=== PATIENT | female | born 1965 | race Caucasian/White ===

== ENCOUNTER 2021-09-23 15:42 | Observation (INO) ==
[2021-09-23] MEDS ORDERED: ASPIRIN CHEW 324 MG PO STA (16:17)
[2021-09-23] MEDS ORDERED: ONDANSETRON INJ 2 MG/ML 2 ML VIAL IV STA (16:20)
[2021-09-23] MEDS ORDERED: MoRPHine SULFATE 2 MG/ML CARP IV STA (16:20)
[2021-09-23 16:24] LABS: Basophils # (auto) 0.01 K/uL (0-0.2); Basophils % (auto) 0.2 %; Eosinophils # (auto) 0.04 K/uL (0-0.5); Eosinophils % (auto) 0.7 %; Hematocrit (blood only) 41.6 % (37-47); Immature Granulocytes # (auto) 0.01 K/uL (0.00-0.02); Immature Granulocytes % (auto) 0.2 %; Lymphocytes # (auto) 1.62 K/uL (1.2-3.4); Lymphocytes % (auto) 29.8 %; Mean Corpuscular Hemoglobin 29.4 pg (25-34); Mean Corpuscular Hgb Conc 33.7 g/dL (32-36); Mean Corpuscular Volume 87.2 fL (80-100); Monocytes % (auto) 7.4 %; Neutrophils # (auto) 3.36 K/uL (1.4-6.5); Neutrophils % (auto) 61.7 %; Platelet Count 190 K/uL (130-400); RDW Coefficient of Variation 12.8 % (11.5-14.5); RDW Standard Deviation 41.1 fL (36.4-46.3); Red Blood Count 4.77 M/uL (4.2-5.4); White Blood Count 5.44 K/uL (4.8-10.8)
[2021-09-23 16:58] LABS: Albumin Globulin Ratio 1.6 (0.9-2); Albumin Level 4.5 gm/dl (3.4-5.0); Bilirubin,Total 0.7 mg/dl (0.2-1.0); Calcium 9.6 mg/dl (8.5-10.1); Creatinine Clr Calc Pharmacy 61.9 ml/min; Est GFR (Non-African American) 77.7 ml/min; Globulin 2.9 gm/dl (2.5-4.0); Total Protein 7.4 gm/dl (6.0-8.3)
--- NOTE | 2021-09-23 17:02 | Ultrasound Report ---
US gallbladder HISTORY: 56 years-old Female epigastric pain acute right upper quadrant abdominal pain COMPARISON: CT abdomen and pelvis 03/25/2014 TECHNIQUE: Multiple real-time sonographic images of the abdominal right upper quadrant were obtained assessing grayscale appearance and color flow FINDINGS: The visualized pancreas is unremarkable. The liver is within normal limits. No hepatic mass identifie d. Distended gallbladder with layering cholelithiasis. The gallbladder wall measures the upper limits of normal at 3 mm. Trace layering gallbladder sludge. No pericholecystic fluid. Sonographic Patton s ign was unable to be assessed secondary to recent pain medication administered to the patient. The co mmon bile duct is mildly dilated at 9 mm. No intrahepatic biliary ductal dilation identified. IMPRESSION: 1. Distended stone and sludge-filled gallbladder with borderline wall thickening. There is no pericho lecystic fluid and the sonographic Patton sign was unable to be assessed. Correlate clinically to exc lude acute cholecystitis. 2. The common bile duct is mildly dilated at 9 mm. This finding could be correlated with serum biliru bin. ACT 112: Negative or not required by law. The above report was generated using voice recognition software. It may contain grammatical, syntax o r spelling errors. Electronically signed by: Robe García M.D. 09/23/2021 5:00 PM
--- NOTE | 2021-09-23 17:02 | XRay Report ---
XR chest 1V portable HISTORY: 56 years-old Female Chest Pain acute atypical chest pain COMPARISON: CT abdomen and pelvis 03/25/2014 TECHNIQUE: Portable AP view of the chest FINDINGS: The cardiomediastinal and hilar silhouettes are within normal limits. No pneumothorax, pleural effusi on, airspace consolidation or overt pulmonary edema. The bones of the chest appear grossly intact. IMPRESSION: No acute process. ACT 112: Negative or not required by law. The above report was generated using voice recognition software. It may contain grammatical, syntax o r spelling errors. Electronically signed by: Robe García M.D. 09/23/2021 5:01 PM
[2021-09-23 17:32] LABS: Potassium 3.8 mmol/L (3.5-5.1)
[2021-09-23] MEDS ORDERED: MoRPHine SULFATE 4 MG/ML 1 ML CARP\\VIAL IV STA (18:04)
[2021-09-23] MEDS ORDERED: MoRPHine SULFATE 2 MG/ML CARP IV PRN ×2 (18:06→21:32)
[2021-09-23] MEDS ORDERED: ONDANSETRON INJ 2 MG/ML 2 ML VIAL IV PRN (21:32)
--- NOTE | 2021-09-23 21:37 | Magnetic Resonance Report ---
MR MRCP HISTORY: 56 years-old Female dilated CBD the right upper quadrant abdominal pain with mild common bi le duct dilation. Normal total bilirubin with slightly elevated alkaline phosphatase. COMPARISON: Right upper quadrant abdominal ultrasound of same day TECHNIQUE: MRCP was obtained according to institutional protocol without the use of IV contrast. FINDINGS: Mildly motion degraded exam. The imaged lower chest appears unremarkable. No bowel obstruction or bow el wall thickening identified. The solid abdominal organs are within normal limits. Distended gallbla dder with borderline wall thickening and trace pericholecystic fluid is noted. Layering cholelithiasi s with gallstones extending into the gallbladder neck. The common bile duct is normal measuring 5 mm. No intrahepatic or extrahepatic biliary ductal dilation. No biliary stricture, lesion or filling def ects identified to suggest choledocholithiasis. Normal caliber of the pancreatic duct. No evidence of pancreatic divisum. IMPRESSION: 1. Cholelithiasis with findings suggestive of acute cholecystitis. 2. No biliary ductal dilation or evidence of choledocholithiasis. ACT 112: Negative or not required by law. The above report was generated using voice recognition software. It may contain grammatical, syntax o r spelling errors. Electronically signed by: Robe García M.D. 09/23/2021 9:34 PM
[2021-09-23] MEDS: LACTATED RINGER'S 1,000 ML IV SCH (21:50)
--- NOTE | 2021-09-23 22:07 | History & Physical Report ---
Date of Service September 23, 2021 Assessment & Plan (1) Cholecystitis: Plan: Patient has been admitted to the hospital due to her clinical presentation and imaging findings. We will proceed as follows: Analgesia will be provided Antiemetics will be provided We will hydrate her with IV fluids We will continue antibiotics. She has received Unasyn thus far We will keep the patient n.p.o. We will tentatively plan on cholecystectomy with Dr. Elvis Atkins on 09/24/2021. I have outlined the risks, benefits, and alternatives with the patient and I also outlined the expected postoperative course. She wishes to proceed. Will use SCDs for DVT prevention. No chemical means due to planned surgery Should be a level 1 full code Admission and Anticipated Discharge Date Admission Date: September 23, 2021 History of Present Illness Chief Complaint: Cholecystitis Primary Care Provider: Ju Dugan MD This is a 56-year-old female who was in her usual state of health when she presented to the emergency department secondary to abdominal pain. She notes the abdominal pain was in the epigastric and right upper quadrants. She notes that she has never had this pain before. She denies any radiation of the pain. She did not have any nausea or vomiting. She denies any fevers, shakes, chills. Patient denies any diarrhea. Patient notes that she has had abdominal surgery in the form of a laparoscopic appendectomy in the past. Because of the nature of the patient's pain she reported to the emergency department Today since admission the patient has had labs and imaging which I independent reviewed. An EKG showed normal sinus rhythm without changes indicative of acute ischemia. Chest x-ray showed no evidence of pneumonia. A gallbladder ultrasound showed a distended gallbladder with stones and sludge in it. There is borderline gallbladder wall thickening. No pericholecystic fluid is noted. There was some dilatation noted of the common bile duct. An MRCP was performed that showed no evidence of choledocholithiasis. Findings consistent with cholecystitis were noted on this study. A CBC showed white blood cell count, hemoglobin, hematocrit, and platelet count were all normal. Chemistry profile showed sodium, potassium, BUN, and creatinine were all normal. There is no elevation of patient's bilirubin or transaminases. There was a slight elevation of patient's alkaline phosphatase at 119. A COVID test was noted to be negative. At the time of my interview she was resting comfortably in bed in no distress Allergies Allergy/AdvReac Type Severity Reaction Status Date / Time No Known Allergies Allergy Unverified 09/23/21 16:00 Home Medications Medication Instructions Recorded Confirmed Type atorvastatin 40 mg tablet 40 mg PO QPM 09/23/21 09/23/21 History estradiol 1 applic VAGINAL 2XWK 09/23/21 09/23/21 History gemfibrozil 600 mg tablet 600 mg PO BID 09/23/21 09/23/21 History Past Med/Surg History Social History Smoking Status: Never smoker Hx Alcohol Use: No Hx Substance Use: No Preferred Language: [place] Communication Ability: Effective 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 Required: No Beliefs That Will Affect Care: None Current Living Situation: Spouse Other Information That Helps Us Care for You: No Feels Safe at Home: Yes Safety Concerns: Feels Safe At This Time Assistive Devices: Assistive Devices Comment: reading glasses Review of Systems Constitutional: no fever and no chills Eyes: no diplopia Ear, Nose, Mouth, Throat: no ear pain Respiratory: no cough and no dyspnea Cardiovascular: no chest pain Gastrointestinal: as per Subjective / HPI and + abdominal pain; no nausea and no vomiting Genitourinary: no dysuria Musculoskeletal: no back pain Integumentary: no rash Neurologic: no localized weakness Physical Exam Constitutional: WD/WN, vitals as above Eyes: no conjunctival abnormality ENMT: Ears: no hearing impairment and no external ear abnormality Mouth: no oropharynx abnormality Neck: trachea midline Respiratory: normal respiratory effort, lungs clear to auscultation Cardiovascular: Rate/Rhythm: regular rate and regular rhythm Gastrointestinal (Abdomen): At the time of my exam the abdomen was soft, nontender and nondistended. There is no pain with palpation. Patton sign was noted to be negative. Musculoskeletal: No calf tenderness Skin: no rashes Neurologic: moves all extremities Psychiatric: A+Ox3, euthymic affect Results & Data Results & Data ([facility]) Vital Signs (Past 12 Hours) Vital Signs Temp Pulse Pulse Resp BP BP BP 09/23/21 21:36 37.1 C 85 18 101/60 09/23/21 19:00 70 18 114/69 09/23/21 17:43 136/79 09/23/21 17:42 67 16 126/71 09/23/21 16:16 62 09/23/21 16:06 66 18 126/71 09/23/21 15:46 36.7 C 75 18 115/70 Pulse Ox 09/23/21 21:36 97 09/23/21 19:00 98 09/23/21 17:43 09/23/21 17:42 97 09/23/21 16:16 95 09/23/21 16:06 99 09/23/21 15:46 100 Code Status & VTE Plan VTE Prophylaxis Plan VTE Prophylaxis will be ordered: Yes Supervising Physician Co-Signing Physician Notes I personally saw and evaluated the patient with Blane Ortega PA-C and agree with the assessment and plan. 56-year-old female with acute cholecystitis and dilated common bile duct Admit to the surgery team Keep n.p.o., give IV fluids and IV antibiotics MRCP to evaluate the common bile duct for choledocholithiasis If this is negative we will proceed with cholecystectomy PG Care Time/CCT Total # of Minutes Spent Total Time Spent with Patient: Total time spent is greater than 50% in coordination of care (as documented) at patient's floor/unit and/or counseling patient: Coding Level of Care Code 97276 Initial Inpt Care Lvl 3 Diagnoses Cholecystitis K81.9
[2021-09-23] MEDS: AMPICILLIN/SULBACTAM SOD 1,500 MG in 0.9 % SODIUM CHLORIDE 100 ML IV SCH (22:17)
[2021-09-23 23:22] LABS: Pregnancy Test, Urine Negative (Negative)
[2021-09-24] MEDS: AMPICILLIN/SULBACTAM SOD 1,500 MG in 0.9 % SODIUM CHLORIDE 100 ML IV SCH ×2 (03:50→11:10)
--- NOTE | 2021-09-24 05:00 | Surgery Progress Note ---
Date of Service September 24, 2021 Assessment & Plan (1) Cholecystitis: Plan: Patient has been admitted to the hospital due to her clinical presentation and imaging findings. We will proceed as follows: Continue analgesics Continue antiemetics Continue hydration with IV fluids Continue antibiotics in the form of Unasyn We will keep the patient n.p.o. Cholecystectomy planned for later this morning Will use SCDs for DVT prevention. No chemical means due to planned surgery Should be a level 1 full code Admission and Anticipated Discharge Date Admission Date: September 23, 2021 Supervising Physician Co-Signing Physician Notes I personally saw and evaluated the patient with Blane Ortega PA-C and agree with the assessment and plan. 56-year-old female with acute cholecystitis and dilated common bile duct MRCP images and results reviewed without evidence of choledocholithiasis We will plan on laparoscopic cholecystectomy possible open today Consent obtained, risks discussed including bleeding, infection, bile leak, ductal injury Subjective Patient is resting comfortably in bed. She denies any nausea or vomiting. She denies any recurrent abdominal pain. Physical Exam Gastrointestinal (Abdomen): Abdomen is soft, nondistended. There is minimal to no tenderness with palpation of the right upper quadrant Results & Data ([facility]) Vital Signs (Past 12 Hours) Vital Signs Temp Pulse Resp BP BP Pulse Ox 09/23/21 21:36 37.1 C 85 18 101/60 97 09/23/21 19:00 70 18 114/69 98 09/23/21 17:43 136/79 09/23/21 17:42 67 16 126/71 97 PG Care Time/CCT Total # of Minutes Spent Total Time Spent with Patient: Total time spent is greater than 50% in coordination of care (as documented) at patient's floor/unit and/or counseling patient: Coding Level of Care Code 34419 Subseq Hosp Care Lvl 1 Diagnoses Cholecystitis K81.9
[2021-09-24 06:45] LABS: Basophils # (auto) 0.01 K/uL (0-0.2); Basophils % (auto) 0.1 %; Eosinophils # (auto) 0.05 K/uL (0-0.5); Eosinophils % (auto) 0.7 %; Hematocrit (blood only) 41.5 % (37-47); Hemoglobin 13.9 g/dL (12.0-16.0); Immature Granulocytes # (auto) 0.02 K/uL (0.00-0.02); Immature Granulocytes % (auto) 0.3 %; Lymphocytes % (auto) 22.6 %; Mean Corpuscular Volume 89.4 fL (80-100); Mean Platelet Volume 9.9 fL (7.4-10.4); Monocytes # (auto) 0.56 K/uL (0.11-0.59); Monocytes % (auto) 7.9 %; Neutrophils # (auto) 4.85 K/uL (1.4-6.5); Neutrophils % (auto) 68.4 %; Platelet Count 202 K/uL (130-400); RDW Standard Deviation 42.5 fL (36.4-46.3); Red Blood Count 4.64 M/uL (4.2-5.4); White Blood Count 7.09 K/uL (4.8-10.8)
[2021-09-24 07:03] LABS: Albumin Globulin Ratio 1.6 (0.9-2); BUN Creatinine Ratio 20.5 (10-20); Bilirubin,Total 0.7 mg/dl (0.2-1.0); Calcium 9.1 mg/dl (8.5-10.1); Creatinine Clr Calc Pharmacy 71.2 ml/min; Est GFR (African American) 106.7 ml/min; Est GFR (Non-African American) 92.1 ml/min; Globulin 2.5 gm/dl (2.5-4.0); Potassium 3.6 mmol/L (3.5-5.1); Total Protein 6.5 gm/dl (6.0-8.3)
[2021-09-24 07:10] LABS: Mean Corpuscular Hgb Conc 33.5 g/dL (32-36)
[2021-09-24] MEDS: LACTATED RINGER'S 1,000 ML IV SCH ×3 (07:49→23:52)
[2021-09-24] MEDS ORDERED: ROCURONIUM BROMIDE 10 MG/ML 5 ML VIAL IV ONE (07:59)
[2021-09-24] MEDS ORDERED: MIDAZOLAM HCL 1 MG/ML 2ML VIAL ONE (07:59)
[2021-09-24] MEDS ORDERED: fentaNYL citrate 100 MCG/2 ML VIAL ONE ×2 (07:59→09:06)
[2021-09-24] MEDS ORDERED: PROPOFOL IV EMULSION 10 MG/ML 20 ML VIAL IV ONE (07:59)
[2021-09-24] MEDS ORDERED: LIDOCAINE 2% 2 ML VIAL/AMP(20MG/ML) INFIL ONE (07:59)
[2021-09-24] MEDS ORDERED: DEXAMETHASONE SOD INJ 4 MG/ML VIAL ONE (07:59)
[2021-09-24] MEDS ORDERED: ONDANSETRON INJ 2 MG/ML 2 ML VIAL ONE (07:59)
[2021-09-24] MEDS ORDERED: BUPIVACAINE/EPINEPHRINE 0.25% 1:200,000 30 ML VIAL ONE (08:03)
[2021-09-24] MEDS ORDERED: fentaNYL citrate 100 MCG/2 ML VIAL IV PRN (08:20)
[2021-09-24] MEDS ORDERED: ATROPINE SULFATE 0.1 MG/ML 10ML SYR IV PRN (08:20)
[2021-09-24] MEDS ORDERED: ONDANSETRON INJ 2 MG/ML 2 ML VIAL IV PRN (08:20)
[2021-09-24] MEDS ORDERED: HYDROmorphone INJ 2 MG/ML SYR/VIAL IV PRN (08:20)
[2021-09-24] MEDS ORDERED: ePHEDrine sulfate 50 MG/ML AMP IV PRN (08:20)
--- NOTE | 2021-09-24 08:20 | Anesthesiology Consultation ---
Date of Service September 24, 2021 Assessment & Plan ASA ASA2 Proposed Anesthesia Anesthesia Type: General Risk / Benefits Reviewed With: PT / POA / Parent / Guardian, Accepts Plan and Informed Consent Obtained History Surgery Operation Date: 09/24/21 11:00 Proposed Procedures p Laparoscopic Cholecystectomy - Elvis Atkins, Height/Weight Height: 5 ft 3 in Weight: 58.1 kg Allergies Allergy/AdvReac Type Severity Reaction Status Date / Time No Known Allergies Allergy Unverified 09/23/21 16:00 Medications Home Medications Medication Instructions Recorded Confirmed Last Taken atorvastatin 40 mg tablet 40 mg PO QPM 09/23/21 09/23/21 Unknown estradiol 1 applic VAGINAL 2XWK 09/23/21 09/23/21 Unknown gemfibrozil 600 mg tablet 600 mg PO BID 09/23/21 09/23/21 Unknown Active Medications Generic Name Dose Route Start Last Admin Trade Name Freq PRN Reason Stop Dose Admin Lactated Ringer's 1,000 mls @ 100 mls/hr 09/23/21 21:32 09/24/21 07:49 Lr IV 10/23/21 21:31 100 mls/hr .Q10H ZAINA Administration Ampicillin Sodium/Sulbactam 104 mls @ 200 mls/hr 09/23/21 22:00 09/24/21 04:22 Sodium 1,500 mg/ Sodium IV 10/03/21 21:59 Infused Chloride Q6H ZAINA Infusion Protocol NPO Date Last Intake of Fluids: 09/23/21 Time Last Intake of Fluids: 14:30 Date Last Intake of Solids: 09/23/22 Time Last Intake of Solids: 14:30 Exercise / Class Metabolic Activity II 4-5 Yardwork/Stairs/Walk up hill Past Anesthesia History No Hx of Anesthesia Complications and No Family Hx of Anesthesia Complications History of PONV No Hx of PONV and No Hx of Motion Sickness Social History Smoking Status: Never smoker Hx Alcohol Use: No Hx Substance Use: No Review of Systems denies fever/cough/ colds/ chest pain/ SOB/ DARRICK denies DARRICK Physical Exam Vital Signs Last Vital Signs Temp 37.2 C 09/24/21 07:20 Pulse 68 09/24/21 07:20 Resp 16 09/24/21 07:20 BP 100/57 L 09/24/21 07:20 Pulse Ox 98 05/01/22 07:20 ENMT Mouth: no TMJ abnormality and no dentition abnormality Thyromental Distance: > or= 3.5 Finger Breadths Mallampati Class: II Neck neck extension not limited Respiratory normal respiratory effort; no respiratory distress Auscultation: lungs clear to auscultation bilaterally Cardiovascular Rate/Rhythm: regular rate and regular rhythm Neurologic moves all extremities Psychiatric Orientation: alert and oriented x 3 Testing Laboratory Results 09/24/21 06:25 09/24/21 06:25 Urine Test Negative (Negative) 09/23/21 22:50 09/23/21 22:50 Urine Test Negative
[2021-09-24] MEDS ORDERED: KETOROLAC 30 MG/ML VIAL ONE (09:12)
[2021-09-24] MEDS ORDERED: HYDROmorphone INJ 1 MG/ML SYRINGE ONE (09:30)
--- NOTE | 2021-09-24 09:51 | Post Operative Brief Note ---
PG Immediate Post Op with CF Date of Surgery September 24, 2021 Pre & Post Diagnosis Operation Date: 09/24/21 11:00 Pre-Op Diagnosis: Acute CHOLECYSTITIS Post-Op Diagnosis: Acute CHOLECYSTITIS I identified the patient and participated in the time-out.: Yes Procedure Operation Date: 09/24/21 11:00 Actual Procedures p Laparoscopic Cholecystectomy(Not Applicable) - Elvis Atkins DO Surgeon Elvis Atkins DO Plant Cytologist None Estimated Blood Loss 5 Findings See Below Acutely inflamed edematous gallbladder Specimens Specimen Description: A. Gallbladder Anesthesia Type General Complications none Disposition Disposition: Recovery Room
--- NOTE | 2021-09-24 09:53 | Operative Report ---
PG Post Operative Report Pre & Post Diagnosis Operation Date: 09/24/21 11:00 Pre-Op Diagnosis: Acute CHOLECYSTITIS Post-Op Diagnosis: Acute CHOLECYSTITIS I identified the patient and participated in the time-out.: Yes Procedure Operation Date: 09/24/21 11:00 Actual Procedures p Laparoscopic Cholecystectomy(Not Applicable) - Elvis Atkins DO Surgeon Elvis Atkins DO Mine Promotor None Estimated Blood Loss 5 Findings See Below Acutely inflamed edematous gallbladder Fluids see anesthesia record Specimens Gallbladder to pathology Drains None Anesthesia Type General Complications none Disposition Disposition: Recovery Room Indications 56-year-old female with acute cholecystitis Description of Procedure The patient was brought to the operating room and placed in the supine position with both arms extended. At this time she underwent general endotracheal anesthesia without any problems. She was given appropriate pre-operative antibiotics. Her abdomen prepped and draped in the usual sterile fashion. A timeout was called, the procedure was verified as Laparoscopic cholecystectomy, possible open, possible intra-operative cholangiogram. Surgical, nursing and anesthesia teams agreed and the procedure was begun. After injection of 0.25% Marcaine with epinephrine, a supraumbilical vertical incision was made and carried down to the fascia using S-retractors. The abdominal wall was then elevated with towel clamps and abdomen entered using the Veress needle confirming position using the saline drop test. Pneumoperitoneum was established and 5mm trocar was placed. Laparoscope was introduced. No injury from entry into the abdomen was visualized after inspection of the abdomen. Three further ports were placed under direct visualization. One 11mm in the subxiphoid region and two 5mm in the RUQ. At this time the abdomen was inspected and the gallbladder identified. The gallbladder was mildly inflamed and edematous consistent with acute cholecystitis. The gallbladder fundus was grasped and retracted cephalad. The gallbladder infundibulum was then grasped and retracted laterally. The cystic duct and cystic artery were then identified and skeletonized. The critical view of safety was obtained. They were both then clipped twice proximally and once distally and then divided using scissors. The gallbladder was then taken off of the liver bed using electrocautery and placed in an endocatch bag and removed from the subxiphoid port. The liver bed was then inspected and no bile leak or bleeding was evident. The subxiphoid port was then closed using 0-Vicryl using the suture passer. The trocars were then removed under direct visualization and no bleeding was present. Abdomen was desufflated. The skin was then closed using 4-0 Monocryl in a subcuticular fashion. Surgical glue was applied. Needle and sponge counts were correct x 2. At this time the patient was awoken from anesthesia and extubated having remained stable throughout the entire case. The patient was then transported to PACU in stable condition. I attest to the content of the Intraoperative Record and any orders documented therein. Any exceptions are noted below.
[2021-09-24] MEDS ORDERED: ACETAMINOPHEN 325 MG TAB PO PRN (10:42)
[2021-09-24] MEDS ORDERED: oxyCODONE HCL IR 5 MG TAB (IMMEDIATE RELEASE) PO PRN (10:42)
--- NOTE | 2021-09-24 10:58 | Anesthesiology Progress Note ---
Date of Service September 24, 2021 Anesthesia Post Procedure Vital Signs Vital Signs: Temp Pulse Pulse Pulse Resp BP BP 09/24/21 10:50 36.5 C 61 12 09/24/21 10:40 65 12 09/24/21 10:30 36.3 C L 62 16 09/24/21 10:20 67 14 09/24/21 10:10 62 16 09/24/21 10:04 36.0 C L 67 16 09/24/21 07:20 37.2 C 68 16 09/23/21 21:36 37.1 C 85 18 101/60 09/23/21 19:00 70 18 09/23/21 17:43 09/23/21 17:42 67 16 09/23/21 16:16 62 09/23/21 16:06 66 18 09/23/21 15:46 36.7 C 75 18 115/70 BP BP Pulse Ox 09/24/21 10:50 120/73 97 09/24/21 10:40 132/67 97 09/24/21 10:30 129/67 100 09/24/21 10:20 127/68 100 09/24/21 10:10 130/68 100 09/24/21 10:04 160/89 H 100 09/24/21 07:20 100/57 L 98 09/23/21 21:36 97 09/23/21 19:00 114/69 98 09/23/21 17:43 136/79 09/23/21 17:42 126/71 97 09/23/21 16:16 95 09/23/21 16:06 126/71 99 09/23/21 15:46 100 Pain Intensity Medial Chest: Pain Intensity: 5 Abdomen: Pain Intensity: 3 Transfer of Care Handoff Completed per policy Notes Mental Status: alert / awake / arousable and participated in evaluation Patient Amnestic to Procedure: Yes Nausea / Vomiting: adequately controlled Pain: adequately controlled Airway Patency, RR, SpO2: stable & adequate BP & HR: stable & adequate Hydration State: stable & adequate Anesthetic Complications: no major complications apparent and Pt Satisfied with anesthetic care
--- NOTE | 2021-09-24 12:28 | Anesthesiology Progress Note ---
Date of Service September 24, 2021 Anesthesia Post Procedure Vital Signs Vital Signs: Temp Pulse Pulse Pulse Resp BP BP 09/24/21 11:50 36.5 C 66 18 09/24/21 11:06 36.5 C 57 L 14 09/24/21 10:50 36.5 C 61 12 09/24/21 10:40 65 12 09/24/21 10:30 36.3 C L 62 16 09/24/21 10:20 67 14 09/24/21 10:10 62 16 09/24/21 10:04 36.0 C L 67 16 09/24/21 07:20 37.2 C 68 16 09/23/21 21:36 37.1 C 85 18 101/60 09/23/21 19:00 70 18 09/23/21 17:43 09/23/21 17:42 67 16 09/23/21 16:16 62 09/23/21 16:06 66 18 09/23/21 15:46 36.7 C 75 18 115/70 BP BP Pulse Ox 09/24/21 11:50 127/75 97 09/24/21 11:06 121/73 98 09/24/21 10:50 120/73 97 09/24/21 10:40 132/67 97 09/24/21 10:30 129/67 100 09/24/21 10:20 127/68 100 09/24/21 10:10 130/68 100 09/24/21 10:04 160/89 H 100 09/24/21 07:20 100/57 L 98 09/23/21 21:36 97 09/23/21 19:00 114/69 98 09/23/21 17:43 136/79 09/23/21 17:42 126/71 97 09/23/21 16:16 95 09/23/21 16:06 126/71 99 09/23/21 15:46 100 Pain Intensity Medial Chest: Pain Intensity: 5 Abdomen: Pain Intensity: 3 Transfer of Care Handoff Completed per policy Notes Mental Status: alert / awake / arousable and participated in evaluation Patient Amnestic to Procedure: Yes Nausea / Vomiting: adequately controlled Pain: adequately controlled Airway Patency, RR, SpO2: stable & adequate BP & HR: stable & adequate Hydration State: stable & adequate Anesthetic Complications: no major complications apparent and Pt Satisfied with anesthetic care
[2021-09-24] MEDS ORDERED: PROCHLORPERAZINE 5 MG in SYRINGE 4 ML IV ONE (13:25)
--- NOTE | 2021-09-24 17:21 | Emergency Department Note ---
Impression & Plan Acute cholecystitis ED Provider Note CHIEF COMPLAINT: Epigastric abdominal pain HISTORY OF PRESENT ILLNESS: This 56-year-old female patient presents to the emergency department with complaints of epigastric abdominal pain. Tonight the patient was eating some sesame crackers as a snack when she developed some severe pain. It does tend to to wax and wane in severity. She denies any fever but admits to a stabbing type pain intermittently. She does have significant nausea but has not vomited. Patient denies any fever. She denies any previous surgery on the gallbladder. Patient denies any history of ulcers. Has been an ongoing issue. REVIEW OF SYSTEMS: A review of systems was performed with positives and pertinent negatives listed in the history of present illness. 10 systems were reviewed and are otherwise negative. ALLERGIES: see below MEDICATIONS: see below PMH: see below SOCIAL HISTORY: see below DDx: Biliary pathology, peptic ulcer disease, aortic dissection, AAA, mesenteric ischemia, kidney stone, UTI, ACS, PNA, amongst others PHYSICAL EXAM: Vital signs reviewed. General: Well-appearing 56-year-old female, in some discomfort HEENT: No scleral icterus, PERRLA, neck supple. Atraumatic. Cardiovascular: Regular rate and rhythm, no extra sounds. Pulmonary: Clear to auscultation bilaterally, normal work of breathing. Abdomen: Soft, tender to palpation in the epigastric region, right greater than left, nondistended, positive bowel sounds. Musculoskeletal: Atraumatic, no peripheral edema. Neurologic: Patient awake alert and oriented x 3 Skin: Warm, dry, no rash EMERGENCY DEPARTMENT COURSE/MDM: Patient was evaluated and appeared to be in significant discomfort. IV access was updated laboratory work was drawn. Patient was hydrated with normal saline solution, given IV morphine 2 mg and Zofran. Ultrasound right upper quadrant performed and reveals findings consistent with a mild acute cholecystitis. On my reevaluation the patient, she was tearful and writhing in pain. Second dose of morphine 4 mg was ordered and nursing staff was alerted. IV hydration was continued and patient/family was notified that general surgery was consulted regarding the findings on ultrasound. Dr. Atkins agreed to admit the patient for further management. They seemed happy with the plan and agreed. MONITORING: An order for cardiac monitoring was placed and the patient is noted to be in a normal sinus rhythm at 66 beats per minute. RADIOLOGY: See below EKG: Normal sinus rhythm at 60 bpm. Normal axis. Normal QTC. Normal ST segments. No PVC, no PAC. No previous for comparison. DISPOSITION: Admission Past Med/Surg History Medical History Dyslipidemia Social History Smoking Status: Never smoker Hx Alcohol Use: No Hx Substance Use: No Preferred Language: Iraqi Communication Ability: Effective Visual Impairment: No Limitations Supervisor Hand Silvering Required: No Beliefs That Will Affect Care: None Current Living Situation: Spouse Feels Safe at Home: Yes Assistive Devices: None Allergies Allergies Allergy/AdvReac Type Severity Reaction Status Date / Time No Known Allergies Allergy Unverified 09/23/21 16:00 Home Meds Home Medications Medication Instructions Recorded Confirmed atorvastatin 40 mg tablet 40 mg PO QPM 09/23/21 09/23/21 estradiol 1 applic VAGINAL 2XWK 09/23/21 09/23/21 gemfibrozil 600 mg tablet 600 mg PO BID 09/23/21 09/23/21 Previous Rx's Medication Instructions Recorded oxycodone 5 mg tablet 5 - 10 mg PO .[id number] PRN #15 tab 09/25/21 Results & Data (ED) Vital Signs Vital Signs - 24 hr 09/23/21 17:42 09/23/21 17:43 Pulse Rate [Right Finger] 67 Respiratory Rate 16 Blood Pressure [Right Arm] 126/71 136/79 Blood Pressure Mean [Right Arm] 89 98 Pulse Oximetry 97 Oxygen Delivery Method Room Air Home Medications Current Medication List: was personally reviewed by me Laboratory Data Attestation: I reviewed the patient's lab results. Result diagrams: 09/24/21 06:25 09/24/21 06:25 Lab Results 09/23/21 09/23/21 09/23/21 Range/Units 16:03 16:03 16:03 WBC 5.44 (4.8-10.8) K/uL RBC 4.77 (4.2-5.4) M/uL Hgb 14.0 (12.0-16.0) g/dL Hct 41.6 (37-47) % MCV 87.2 (80-100) fL MCH 29.4 (25-34) pg MCHC 33.7 (32-36) g/dL RDW Std Deviation 41.1 (36.4-46.3) fL RDW Coeff of Oswald 12.8 (11.5-14.5) % Plt Count 190 (130-400) K/uL MPV 10.0 (7.4-10.4) fL Immature Gran % (Auto) 0.2 % Neut % (Auto) 61.7 % Lymph % (Auto) 29.8 % [place] % (Auto) 7.4 % Eos % (Auto) 0.7 % Baso % (Auto) 0.2 % Neut # (Auto) 3.36 (1.4-6.5) K/uL Lymph # (Auto) 1.62 (1.2-3.4) K/uL [place] # (Auto) 0.40 (0.11-0.59) K/uL Eos # (Auto) 0.04 (0-0.5) K/uL Baso # (Auto) 0.01 (0-0.2) K/uL Immature Gran # (Auto) 0.01 (0.00-0.02) K/uL Sodium 140 (136-145) mmol/L Potassium 3.8 (3.5-5.1) mmol/L Chloride 103 (98-107) mmol/L Carbon Dioxide 27 (21-32) mmol/L Anion Gap 10 (3-11) BUN 21 (6-23) mg/dl Creatinine 0.84 (0.6-1.2) mg/dl Est Cr Clr Drug Dosing 61.9 ml/min Est GFR ( Amer) 90.0 ml/min Est GFR (Non-Af Amer) 77.7 ml/min BUN/Creatinine Ratio 25.0 H (10-20) Glucose 127 H (70-99(Fasting)) mg/dl Calcium 9.6 (8.5-10.1) mg/dl Total Bilirubin 0.7 (0.2-1.0) mg/dl AST 28 (13-39) U/L ALT 28 (7-52) U/L Alkaline Phosphatase 119 H (34-104) U/L Troponin I High Sens < 2.3 (0-14) pg/ml Total Protein 7.4 (6.0-8.3) gm/dl Albumin 4.5 (3.4-5.0) gm/dl Globulin 2.9 (2.5-4.0) gm/dl Albumin/Globulin Ratio 1.6 (0.9-2) Lipase 44 (11-82) U/L SARS-CoV-2, RNA, NAAT (NEGATIVE) 09/23/21 09/23/21 Range/Units 16:45 18:12 WBC (4.8-10.8) K/uL RBC (4.2-5.4) M/uL Hgb (12.0-16.0) g/dL Hct (37-47) % MCV (80-100) fL MCH (25-34) pg MCHC (32-36) g/dL RDW Std Deviation (36.4-46.3) fL RDW Coeff of Oswald (11.5-14.5) % Plt Count (130-400) K/uL MPV (7.4-10.4) fL Immature Gran % (Auto) % Neut % (Auto) % Lymph % (Auto) % [place] % (Auto) % Eos % (Auto) % Baso % (Auto) % Neut # (Auto) (1.4-6.5) K/uL Lymph # (Auto) (1.2-3.4) K/uL [place] # (Auto) (0.11-0.59) K/uL Eos # (Auto) (0-0.5) K/uL Baso # (Auto) (0-0.2) K/uL Immature Gran # (Auto) (0.00-0.02) K/uL Sodium (136-145) mmol/L Potassium (3.5-5.1) mmol/L Chloride (98-107) mmol/L Carbon Dioxide (21-32) mmol/L Anion Gap (3-11) BUN (6-23) mg/dl Creatinine (0.6-1.2) mg/dl Est Cr Clr Drug Dosing ml/min Est GFR ( Amer) ml/min Est GFR (Non-Af Amer) ml/min BUN/Creatinine Ratio (10-20) Glucose (70-99(Fasting)) mg/dl Calcium (8.5-10.1) mg/dl Total Bilirubin (0.2-1.0) mg/dl AST (13-39) U/L ALT (7-52) U/L Alkaline Phosphatase (34-104) U/L Troponin I High Sens 2.8 (0-14) pg/ml Total Protein (6.0-8.3) gm/dl Albumin (3.4-5.0) gm/dl Globulin (2.5-4.0) gm/dl Albumin/Globulin Ratio (0.9-2) Lipase (11-82) U/L SARS-CoV-2, RNA, NAAT NEGATIVE (NEGATIVE) Administered Medications Discontinued Medications Acetaminophen (Acetaminophen 325 Mg Tab) 650 mg PO Q6 PRN PRN Reason: Pain Stop: 10/24/21 10:41 Last Admin: 09/24/21 19:39 Dose: 650 mg Documented by: [id number] Aspirin (Aspirin Chew 324 Mg) 324 mg PO NOW STA Stop: 09/23/21 16:18 Last Admin: 09/23/21 16:30 Dose: Not Given Documented by: [id number] Bupivacaine HCl/Epinephrine Bitart (Bupivacaine/Epinephrine 0.25% 1:200,000 30 Ml Vial) Confirm Administered Dose 30 ml .ROUTE .[facility] Stop: 09/24/21 08:04 Last Admin: 09/24/21 11:03 Dose: Not Given Documented by: [id number] Lactated Ringer's (Lr) 1,000 mls @ 100 mls/hr IV .Q10H [facility] Stop: 10/23/21 21:31 Last Infusion: 09/25/21 10:24 Dose: 0 mls/hr Documented by: [id number] Admin: 09/25/21 09:56 Dose: 100 mls/hr Documented by: [id number] Infusion: 09/25/21 09:52 Dose: 100 mls/hr Documented by: [id number] Admin: 09/24/21 23:52 Dose: 100 mls/hr Documented by: [id number] Infusion: 09/24/21 23:52 Dose: 100 mls/hr Documented by: [id number] Admin: 09/24/21 14:41 Dose: 100 mls/hr Documented by: [id number] Infusion: 09/24/21 14:41 Dose: 100 mls/hr Documented by: [id number] Admin: 09/24/21 07:49 Dose: 100 mls/hr Documented by: [id number] Infusion: 09/24/21 07:49 Dose: 100 mls/hr Documented by: [id number] Admin: 09/23/21 21:50 Dose: 100 mls/hr Documented by: [id number] Ampicillin Sodium/Sulbactam Sodium 1,500 mg/ Sodium Chloride 104 mls @ 200 mls/hr IV Q6H ZAINA; Protocol Stop: 10/03/21 21:59 Last Admin: 09/24/21 11:10 Dose: Not Given Documented by: [id number] Infusion: 09/24/21 04:22 Dose: 0 mls/hr Documented by: [id number] Admin: 09/24/21 03:50 Dose: 200 mls/hr Documented by: [id number] Infusion: 09/23/21 22:49 Dose: 0 mls/hr Documented by: [id number] Admin: 09/23/21 22:17 Dose: 200 mls/hr Documented by: [id number] Prochlorperazine 5 mg/ Syringe 5 mls @ 5 mls/min IV ONCE ONE Stop: 09/24/21 13:26 Last Admin: 09/24/21 14:03 Dose: 5 mls/min Documented by: [id number] Morphine Sulfate (Morphine Sulfate 2 Mg/Ml Carp) 2 mg IV NOW STA Stop: 09/23/21 16:21 Last Admin: 09/23/21 16:24 Dose: 2 mg Documented by: [id number] Morphine Sulfate (Morphine Sulfate 4 Mg/Ml 1 Ml Carp\Vial) 4 mg IV NOW STA Stop: 09/23/21 18:05 Last Admin: 09/23/21 18:18 Dose: 4 mg Documented by: [id number] Morphine Sulfate (Morphine Sulfate 2 Mg/Ml Carp) 2 mg IV Q3H PRN PRN Reason: Pain (1,2,3,4,5) & Pre PT Stop: 10/07/21 21:31 Last Admin: 09/24/21 13:09 Dose: 2 mg Documented by: [id number] Ondansetron HCl (Ondansetron Inj 2 Mg/Ml 2 Ml Vial) 4 mg IV NOW STA Stop: 09/23/21 16:21 Last Admin: 09/23/21 16:24 Dose: 4 mg Documented by: [id number] Ondansetron HCl (Ondansetron Inj 2 Mg/Ml 2 Ml Vial) 4 mg IV Q4H PRN PRN Reason: Nausea And Vomiting Stop: 10/23/21 21:31 Last Admin: 09/24/21 11:03 Dose: 4 mg Documented by: [id number] Imaging Data Radiologist's Impression: Chest X-Ray 09/23/21 16:12 XR chest 1V portable HISTORY: 56 years-old Female Chest Pain acute atypical chest pain COMPARISON: CT abdomen and pelvis 03/25/2014 TECHNIQUE: Portable AP view of the chest FINDINGS: The cardiomediastinal and hilar silhouettes are within normal limits. No pneumothorax, pleural effusion, airspace consolidation or overt pulmonary edema. The bones of the chest appear grossly intact. IMPRESSION: No acute process. ACT 112: Negative or not required by law. The above report was generated using voice recognition software. It may contain grammatical, syntax or spelling errors. Electronically signed by: Robe García M.D. 09/23/2021 5:01 PM Gallbladder Ultrasound 09/23/21 16:19 US gallbladder HISTORY: 56 years-old Female epigastric pain acute right upper quadrant abdominal pain COMPARISON: CT abdomen and pelvis 03/25/2014 TECHNIQUE: Multiple real-time sonographic images of the abdominal right upper quadrant were obtained assessing grayscale appearance and color flow FINDINGS: The visualized pancreas is unremarkable. The liver is within normal limits. No hepatic mass identified. Distended gallbladder with layering cholelithiasis. The gallbladder wall measures the upper limits of normal at 3 mm. Trace layering gallbladder sludge. No pericholecystic fluid. Sonographic Patton sign was unable to be assessed secondary to recent pain medication administered to the patient. The common bile duct is mildly dilated at 9 mm. No intrahepatic biliary ductal dilation identified. IMPRESSION: 1. Distended stone and sludge-filled gallbladder with borderline wall thickening. There is no pericholecystic fluid and the sonographic Patton sign was unable to be assessed. Correlate clinically to exclude acute cholecystitis. 2. The common bile duct is mildly dilated at 9 mm. This finding could be correlated with serum bilirubin. ACT 112: Negative or not required by law. The above report was generated using voice recognition software. It may contain grammatical, syntax or spelling errors. Electronically signed by: Robe García M.D. 09/23/2021 5:00 PM Cholangiopancreatography MRI 09/23/21 18:12 MR MRCP HISTORY: 56 years-old Female dilated CBD the right upper quadrant abdominal pain with mild common bile duct dilation. Normal total bilirubin with slightly elevated alkaline phosphatase. COMPARISON: Right upper quadrant abdominal ultrasound of same day TECHNIQUE: MRCP was obtained according to institutional protocol without the use of IV contrast. FINDINGS: Mildly motion degraded exam. The imaged lower chest appears unremarkable. No bowel obstruction or bowel wall thickening identified. The solid abdominal organs are within normal limits. Distended gallbladder with borderline wall thickening and trace pericholecystic fluid is noted. Layering cholelithiasis with gallstones extending into the gallbladder neck. The common bile duct is normal measuring 5 mm. No intrahepatic or extrahepatic biliary ductal dilation. No biliary stricture, lesion or filling defects identified to suggest choledocholithiasis. Normal caliber of the pancreatic duct. No evidence of pancreatic divisum. IMPRESSION: 1. Cholelithiasis with findings suggestive of acute cholecystitis. 2. No biliary ductal dilation or evidence of choledocholithiasis. ACT 112: Negative or not required by law. The above report was generated using voice recognition software. It may contain grammatical, syntax or spelling errors. Electronically signed by: Robe García M.D. 09/23/2021 9:34 PM Blood Pressure Blood Pressure Findings: Normal blood pressure Blood Pressure Disposition: did not require urgent referral Discharge Plan Visit Data Chief Complaint: Chest Pain Stated Complaint: CHEST PAIN, HAD NUMBNESS IN HANDS ED Provider: Roberta Henderson Discharge Problem: Acute cholecystitis Patient Disposition: Admitted As Inpatient Discharge Instructions Interventions: ED Discharge Assessment Last Done: 09/23/21 20:57
--- NOTE | 2021-09-25 06:37 | Electrocardiogram Report ---
Test Reason : Blood Pressure : / mmHG Vent. Rate : 060 BPM Atrial Rate : 060 BPM P-R Int : 138 ms QRS Dur : 082 ms QT Int : 426 ms P-R-T Axes : 073 063 051 degrees QTc Int : 426 ms Normal sinus rhythm Normal ECG No previous ECGs available Confirmed by Andrew Menard ([id number]) on 09/25/2021 6:37:01 AM Referred By: REFERRED SELF Confirmed By:Andrew Menard
[2021-09-25] MEDS: LACTATED RINGER'S 1,000 ML IV SCH (09:56)
--- NOTE | 2021-09-25 09:56 | Surgery Progress Note ---
Date of Service September 25, 2021 Assessment & Plan (1) Cholecystitis: Plan: POD#1 lap jamie Patient having some expected post surgical discomfort, but overall doing well VSS and she is afebrile Tolerating some normal food and pain manageable Okay for discharge from our standpoint F/u with Dr. Atkins in 2 weeks. Dispo instructions reviewed Admission and Anticipated Discharge Date Admission Date: September 23, 2021 Supervising Physician Co-Signing Physician Notes I personally saw and evaluated the patient with Violet Gutierrez PA-C and agree with the assessment and plan. 56-year-old female postop day 1 laparoscopic cholecystectomy for acute cholecystitis She is tolerating regular diet without issue Pain controlled She stable for discharge home today and will follow up with me in 2 weeks Subjective Patient says she is sore, but overall feeling better. Does have some sensation of gas pains in the abdomen. Otherwise she is tolerating some regular food. Physical Exam Physical Exam: awake/alert, NAD Gastrointestinal (Abdomen): Inspection/Auscultation: + abdominal surgical incision (surgical dressings dry and intact); abdomen not distended Percussion/Palpation: + abdomen tender (expected manolo-incisional discomfort to palpation) and abdomen soft Results & Data ([facility]) Vital Signs (Past 12 Hours) Vital Signs Temp Pulse Resp BP BP Pulse Ox 09/25/21 07:45 36.8 C 73 18 116/73 98 09/25/21 03:33 37.1 C 71 16 105/59 L 97 09/24/21 22:47 37.3 C 80 16 97/55 L 97 PG Care Time/CCT Total # of Minutes Spent Total Time Spent with Patient: Total time spent is greater than 50% in coordination of care (as documented) at patient's floor/unit and/or counseling patient: Coding Level of Care Code None Diagnoses Cholecystitis K81.9
--- NOTE | 2021-09-26 14:25 | Discharge Summary ---
Date of Service September 26, 2021 Admission HPI Per Admitting Provider This is a 56-year-old female who was in her usual state of health when she presented to the emergency department secondary to abdominal pain. She notes the abdominal pain was in the epigastric and right upper quadrants. She notes that she has never had this pain before. She denies any radiation of the pain. She did not have any nausea or vomiting. She denies any fevers, shakes, chills. Patient denies any diarrhea. Patient notes that she has had abdominal surgery in the form of a laparoscopic appendectomy in the past. Because of the nature of the patient's pain she reported to the emergency department Today since admission the patient has had labs and imaging which I independent reviewed. An EKG showed normal sinus rhythm without changes indicative of acute ischemia. Chest x-ray showed no evidence of pneumonia. A gallbladder ultrasound showed a distended gallbladder with stones and sludge in it. There is borderline gallbladder wall thickening. No pericholecystic fluid is noted. There was some dilatation noted of the common bile duct. An MRCP was performed that showed no evidence of choledocholithiasis. Findings consistent with cholecystitis were noted on this study. A CBC showed white blood cell count, hemoglobin, hematocrit, and platelet count were all normal. Chemistry profile showed sodium, potassium, BUN, and creatinine were all normal. There is no elevation of patient's bilirubin or transaminases. There was a slight elevation of patient's alkaline phosphatase at 119. A COVID test was noted to be negative. At the time of my interview she was resting comfortably in bed in no distress Principal Diagnosis acute cholecystitis Discharge Exam awake, alert, no acute distress Respiratory normal respiratory effort Gastrointestinal (Abdomen) Inspection/Auscultation: + abdominal surgical incision (surgical dressings intact); abdomen not distended Percussion/Palpation: + abdomen tender (expected manolo incisional discomfort to palpation) and abdomen soft Discharge Data Allergies Allergy/AdvReac Type Severity Reaction Status Date / Time No Known Allergies Allergy Unverified 09/23/21 16:00 Consultations 09/23/21 18:11 ED Decision to Admit Stat Procedures Performed Operation Date: 09/24/21 11:00 Actual Procedures p Laparoscopic Cholecystectomy(Not Applicable) - Elvis Atkins, Ordered Studies 09/23/21 16:19 gallbladder Stat 09/23/21 18:12 MRCP Stat Hospital Course (1) Cholecystitis: This is a 56yF who presented to the [facility] ED on 09/23/21 with abdominal pain. Workup in the ED showed a WBC of 5.4 and a RUQ US with a distended gallbladder with stones and sludge. Follow up with an MRCP showed evidence of cholelithiasis and cholecystitis without CBD stones. The patient was tender to palpation in the RUQ. Patient made NPO with IVF and booked for the OR. On 09/24 the patient went to the OR with Dr. Atkins for a laparoscopic cholecystectomy. The patient tolerated the procedure well, see operative report for full details. Post operatively the patient's diet was advanced, pain managed on prn meds, and incisions clean/dry/intact. On POD#1 the patient was deemed stable for discharge to home with plans to follow up in clinic within 2 weeks. Total Time Total Time Spent Total Time Spent (In Minutes): 10 Discharge Plan Discharge Items Patient Disposition: Home - Self-Care Reason For Visit: CHOLECYSTITIS Discharge Diagnosis: laparoscopic cholecystectomy Activity: Per Instructions section Lifting: No more than 10 pounds Bathing Comment: may shower; no soaking in tubs/pools Exercise/Sports: Wait until after follow-up appointment Driving/Machine Use: no driving while taking any narcotics for pain Non-emergency contact: Surgeon Call non-emergency contact if: you have any medication questions, your symptoms worsen, your pain is not controlled, your pain is concerning for you, you have a fever, your temperature is above 101.5, your wound has increased redness, your wound has increased drainage and your wound pain has increased Follow-up/Referrals: Elvis Atkins DO [Physician] - 10/09/21 8:40 am () Ju Dugan MD [Primary Care Provider] - Diet: Regular Addtl Attending Provider Instructions: You may remove your outer surgical dressings tomorrow, 09/26/21. You will have small white bandages on underneath called steri-strips. You may shower with these on. They will tend to fall off on their own within 7-10 days. You may purchase Tylenol and/or Ibuprofen over the counter if needed for additional pain control. Do not exceed >3grams of Acetaminophen within a 24 hour time period. Pending Studies at Discharge: Yes Studies:: surgical pathology Stand-Alone Forms: [facility], Opioid Pain Management, Smoking Cessation Medications and DC Order Prescriptions: New oxycodone 5 mg tablet 5 - 10 mg PO .[id number] PRN (Reason: pain, for initial therapy, max 6 tabs per day) Qty: 15 RF: 0 Continued atorvastatin 40 mg tablet 40 mg PO QPM RF: 0 gemfibrozil 600 mg tablet 600 mg PO BID RF: 0 estradiol 0.01 % (0.1 mg/gram) cream 1 applic VAGINAL 2XWK RF: 0 Discharge Orders: Discharge Order (Routine); Ordered 09/25/21 Ordered By: Violet Rapp/Other Patient Handouts: DVT Post Op Prevention, Cholecystectomy Admission Data Admit Date/Time: 09/23/21 18:23 Attending Provider: Elvis Atkins Admit Provider: Elvis Atkins Primary Care Provider: Ju Dugan Other Providers: Elvis Atkins Other Interventions: Discharge Summary Assessment (RN) Last Done: 09/25/21 10:12 Coding Level of Care Code D/C DAY MANAGEMENT <30 MINS Diagnoses Cholecystitis K81.9
== END 2021-09-25 13:21 | disposition home or self-care (01) ==
LOC: ED 15:42 → 3W 18:23 → INTOOBSV 18:23 → 3W 20:57